=== PATIENT | male | born 1965 | race Caucasian/White ===

== ENCOUNTER 2021-03-07 10:57 | Emergency (ER) | payer BC ==
[2021-03-07] MEDS ORDERED: diphenhydrAMINE 50 MG/ML SDV IVPUSH ONE (11:17)
[2021-03-07] MEDS ORDERED: Sodium Chloride 0.9% 10 ML Syringe FLUSH PRN (11:17)
[2021-03-07] MEDS ORDERED: methylPREDNISolone Sodium Succinate 125 MG/2 ML SDV IVPUSH ONE (11:17)
[2021-03-07] MEDS ORDERED: Lactated Ringers 1,000 ML IV ONE (11:17)
--- NOTE | 2021-03-07 11:19 | EDM.PDOC ---
ED HPI GENERAL MEDICAL PROBLEM - General Chief Complaint: Allergic Reaction Stated Complaint: NUMBNESS Time Seen by Provider: 03/07/21 11:11 Source of Information: Reports: Patient - History of Present Illness INITIAL COMMENTS - FREE TEXT/NARRATIVE: Herbert is a 56 y/o male who comes to the ER after being bitten by a bee while he was out fishing. He did get back to his pickup and took a dose of the EpiPen that he had in his pickup. He denies any SOB, but reports that his lips got numb and tingly. This happened about 45 minutes ago. - Related Data Allergies Allergy/AdvReac Type Severity Reaction Status Date / Time bee venom protein (honey bee) Allergy Itching Verified 03/07/21 11:05 Home Meds: Home Meds EPINEPHrine [Epipen 2-Derik] 0.3 mg IJ ASDIRECTED #1 auto.injct 03/07/21 [Rx] methylPREDNISolone [Medrol Dose Pack] 4 mg PO ASDIRECTED #21 dospk 03/07/21 [Rx] Past Medical History Cardiovascular History: Reports: High Cholesterol Social & Family History - Tobacco Use Tobacco Use Status *Q: Current Every Day Tobacco User Years of Tobacco use: 40 Packs/Tins Daily: 1 ED ROS ALLERGIC REACTION - Review of Systems Review Of Systems: See Below Constitutional: Reports: No Symptoms HEENT: Reports: Other (Lip swelling/tingling) Respiratory: Reports: No Symptoms Cardiovascular: Reports: No Symptoms Endocrine: Reports: No Symptoms GI/Abdominal: Reports: No Symptoms : Reports: No Symptoms Musculoskeletal: Reports: No Symptoms Skin: Reports: No Symptoms Neurological: Reports: No Symptoms Psychiatric: Reports: No Symptoms Hematologic/Lymphatic: Reports: No Symptoms Immunologic: Reports: No Symptoms ED EXAM GENERAL NO PERIP PULSE - Physical Exam Exam: See Below General Appearance: Alert, WD/WN, No Apparent Distress (Adult male) Ears: Hearing Grossly Normal, Normal TMs Nose: Normal Inspection, Normal Mucosa Throat/Mouth: Normal Inspection, Normal Lips (mildly swollen), Normal Teeth, Normal Voice Head: Atraumatic, Normocephalic Neck: Normal Inspection, Other (note welted bite region on the posterior right region) Respiratory/Chest: No Respiratory Distress, Lungs Clear, Chest Non-Tender Cardiovascular: Normal Peripheral Pulses, Regular Rate, Rhythm GI/Abdominal: Normal Bowel Sounds, Soft (Male) Exam: Deferred Rectal (Males) Exam: Deferred Back Exam: Normal Inspection Extremities: Normal Inspection, Normal Range of Motion, Normal Capillary Refill Neurological: Alert, Oriented, CN II-XII Intact, Normal Cognition Psychiatric: Normal Affect, Normal Mood Skin Exam: Warm, Dry, Intact, Normal Color, No Rash Course - Vital Signs Text/Narrative:: 1111 Patient was seen by the [employer]. Vitals stable, but his BP was a bit low. He wa s given a liter of LR, SoluMedrol 125mg IVP, and Benadryl 25mg IVP. 1215 Patient monitored about an hour and was doing well. Will plan to discharge him to home with steroids, antihistamines, and a script for another EpiPen. He was given written discharge instructions. Questions answered. He left the ER in stable condition. Last Recorded V/S: Last Vital Signs Temp 36.6 C 03/07/21 10:58 Pulse 107 H 03/07/21 10:58 Resp 18 03/07/21 10:58 BP 89/61 L 03/07/21 10:58 Pulse Ox 93 L 03/07/21 10:58 - Orders/Labs/Meds Orders: Active Orders 24 hr Category Date Time Status Lactated Ringers [Ringers, Lactated] 1,000 ml Med 03/07/21 11:17 Active IV ONETIME Sodium Chloride 0.9% [Saline Flush] Med 03/07/21 11:17 Active 10 ml FLUSH ASDIRECTED PRN Saline Lock Insert [OM.PC] Stat Oth 03/07/21 11:17 Ordered Medication Orders Lactated Ringer's (Ringers, Lactated) 1,000 mls @ 999 mls/hr IV ONETIME ONE Stop: 03/07/21 12:17 Last Admin: 03/07/21 11:36 Dose: 999 mls/hr Documented by: GERI Sodium Chloride (Sodium Chloride 0.9% 10 Ml Syringe) 10 ml FLUSH ASDIRECTED PRN PRN Reason: Keep Vein Open Meds: Medications Generic Name Dose Route Start Last Admin Trade Name Freq PRN Reason Stop Dose Admin Lactated Ringer's 1,000 mls @ 999 mls/hr 03/07/21 11:17 03/07/21 11:36 Ringers, Lactated IV 03/07/21 12:17 999 mls/hr ONETIME ONE Administration Sodium Chloride 10 ml 03/07/21 11:17 Sodium Chloride 0.9% 10 Ml Syringe FLUSH ASDIRECTED PRN Keep Vein Open Discontinued Medications Generic Name Dose Route Start Last Admin Trade Name Mara PRN Reason Stop Dose Admin Diphenhydramine HCl 25 mg 03/07/21 11:17 03/07/21 11:36 Diphenhydramine 50 Mg/Ml Sdv IVPUSH 03/07/21 11:18 25 mg ONETIME ONE Administration Methylprednisolone Sodium Succinate 125 mg 03/07/21 11:17 03/07/21 11:37 Methylprednisolone Sodium Succinate 125 Mg/2 Ml Sdv IVPUSH 03/07/21 11:18 125 mg ONETIME ONE Administration Departure - Departure Time of Disposition: 12:11 Disposition: Home, Self-Care 01 Clinical Impression: Accidental bee sting - Discharge Information Prescriptions: EPINEPHrine [Epipen 2-Derik] 0.3 mg IJ ASDIRECTED #1 auto.injct methylPREDNISolone [Medrol Dose Pack] 4 mg PO ASDIRECTED #21 dospk Instructions: Bee, Wasp, or Hornet Sting, Adult Forms: ED Department Discharge, ED Return to Work/School Form Sepsis Event Note (ED) - Evaluation Sepsis Screening Result: No Definite Risk - Focused Exam Vital Signs: Vital Signs Temp Pulse Resp BP Pulse Ox 03/07/21 10:58 36.6 C 107 H 18 89/61 L 93 L - My Orders Last 24 Hours: My Active Orders 03/07/21 11:17 Lactated Ringers [Ringers, Lactated] 1,000 ml IV ONETIME Sodium Chloride 0.9% [Saline Flush] 10 ml FLUSH ASDIRECTED PRN Saline Lock Insert [OM.PC] Stat - Assessment/Plan Last 24 Hours: My Active Orders 03/07/21 11:17 Lactated Ringers [Ringers, Lactated] 1,000 ml IV ONETIME Sodium Chloride 0.9% [Saline Flush] 10 ml FLUSH ASDIRECTED PRN Saline Lock Insert [OM.PC] Stat Assessment:: 1)Accidental Bee Sting Plan: -Medrol Dose Pack 4mg oral as directed #21(Rx) -Diphenhydramine 25mg-50mg oral every 6 hours for the next 24-48 hours (USe over the counter meds) -EpiPen 2 pack Use as directed for future bee stings. -Rest today as the meds may make you tired. -Follow up with your PCP as needed -Return to the ER if you have further concerns
== END 2021-03-07 12:24 | disposition home or self-care (01) ==
LOC: VM.ED 10:57
DX: T63.441A Toxic effect of venom of bees, accidental (unintentional), initial encounter (principal); Z72.0 Tobacco use; Z91.030 Bee allergy status
CPT/HCPCS: 96374; 96375; 99282-25; 99283; J1200; J2930; J7120

== ENCOUNTER 2025-03-11 18:09 | Emergency (ER) | payer BC | END 2025-03-11 18:35 | disposition home or self-care (01) | LOC: VM.ED 18:09 | DX: S01.01XA Laceration without foreign body of scalp, initial encounter (principal); S09.90XA Unspecified injury of head, initial encounter; Z91.030 Bee allergy status; W01.198A Fall on same level from slipping, tripping and stumbling with subsequent striking against other object, initial encounter | CPT/HCPCS: 12002; 99282; 99283 ==